=== PATIENT | male | born 1975 | race Caucasian/White ===

== ENCOUNTER 2016-10-20 13:27 | Emergency (ER) | payer BC ==
[2016-10-20] MEDS ORDERED: KETOROLAC 30 MG/ML VIAL ONE (15:56)
[2016-10-20] MEDS ORDERED: DILAUDID 1 MG/ML AMP ONE (16:30)
== END 2016-10-20 17:54 | disposition home or self-care (01) ==
LOC: ER 13:27
DX: N20.1 Calculus of ureter (principal); Z79.899 Other long term (current) drug therapy; F17.210 Nicotine dependence, cigarettes, uncomplicated
CPT/HCPCS: 36415; 74176; 80048; 81003; 85025; 96374; 96375